=== PATIENT | female | born 1985 | race Caucasian/White ===

== ENCOUNTER → 2018-08-16 | Outpatient (CLI) | payer BC ==
--- NOTE | 2018-08-16 13:50 | RAD ---
Left lower extremity venous doppler ultrasound Indication: Left leg pain. Technique: Color Doppler, grayscale, and spectral waveform analysis is used to evaluate the left femoral and popliteal veins. Findings: No evidence of deep venous thrombosis. Normal response to augmentation, normal compressibility and normal phasicity is demonstrated. Visualized calf veins are patent. Impression: Negative for deep venous thrombosis Electronically signed by: Pacheco Pickering MD (08/16/2018 1:46 PM) [id number]
== END | disposition home or self-care (01) ==
LOC: US 11:18
PROVIDERS: ATTEND Family Medicine
DX: M79.605 Pain in left leg (principal); O90.89 Other complications of the puerperium, not elsewhere classified
CPT/HCPCS: 93971